=== PATIENT | male | born 1945 | race Caucasian/White ===

== ENCOUNTER 2018-08-27 16:55 | Emergency (ER) | payer MEDICARE ==
--- NOTE | 2018-08-27 19:13 | EDM.PDOC ---
<Janice Jaime - Last Filed: 08/27/18 19:17> ED HPI GENERAL MEDICAL PROBLEM - General Chief Complaint: Cardiovascular Problem Stated Complaint: DIZZINESS Time Seen by Provider: 08/27/18 17:05 Source of Information: Reports: Patient History Limitations: Reports: No Limitations - History of Present Illness INITIAL COMMENTS - FREE TEXT/NARRATIVE: pt felt like his heart was racing. He was sob and he was weak. He did not have chest pain. He was told he had MS and he has a positive MELVA Onset: Today, Other (Pt was in the grocery store and felt sob and very weak. ) Duration: Hour(s): Location: Reports: Chest, Other ( He had no chest pain. ) Associated Symptoms: Reports: Shortness of Breath - Related Data Allergies Allergy/AdvReac Type Severity Reaction Status Date / Time No Known Allergies Allergy Verified 08/27/18 17:07 Home Meds: Home Meds Amitriptyline [Elavil] 50 mg PO BID 08/27/18 [History] Hydrochlorothiazide [Microzide] 12.5 mg PO DAILY #14 capsule 08/27/18 [Rx] Lisinopril [Prinivil] 20 mg PO DAILY 08/27/18 [History] Omeprazole 40 mg PO DAILY 08/27/18 [History] Zolpidem [Ambien] 5 mg PO BEDTIME 08/27/18 [History] prednisoLONE [Millipred] 5 mg PO DAILY 08/27/18 [History] Past Medical History Cardiovascular History: Reports: Hypertension - Past Surgical History GI Surgical History: Reports: Cholecystectomy, Hernia Repair/Other Musculoskeletal Surgical History: Reports: Shoulder Surgery Social & Family History - Tobacco Use Smoking Status *Q: Current Every Day Smoker Years of Tobacco use: 50 Packs/Tins Daily: 0.5 - Caffeine Use Caffeine Use: Reports: Soda - Recreational Drug Use Recreational Drug Use: No ED ROS GENERAL - Review of Systems Review Of Systems: See Below Constitutional: Reports: Fatigue HEENT: Reports: No Symptoms Respiratory: Reports: Shortness of Breath Cardiovascular: Reports: Other (pt felt like his heart was racing. He was sob. ) Endocrine: Reports: No Symptoms GI/Abdominal: Reports: No Symptoms : Reports: No Symptoms Musculoskeletal: Reports: No Symptoms Skin: Reports: No Symptoms Neurological: Reports: Dizziness ED EXAM, GENERAL - Physical Exam Exam: See Below Free Text/Narrative:: pt arrived with a history of being sob and feeling slightly dizzy. He did not have chest pain. He felt like his pulse was rapid but when he got to the clinid it was not fasr/ Exam Limited By: No Limitations General Appearance: Alert, No Apparent Distress, Anxious Ears: Normal TMs Nose: Normal Inspection Throat/Mouth: Normal Inspection Head: Atraumatic Neck: Normal Inspection Respiratory/Chest: No Respiratory Distress Cardiovascular: Regular Rate, Rhythm GI/Abdominal: Soft, Non-Tender (Male) Exam: Deferred Rectal (Males) Exam: Deferred Back Exam: Normal Inspection Extremities: Other ( slight peripheral edema. He has stasis changes and varicosities. ) Neurological: Alert, Oriented, Normal Cognition Psychiatric: Normal Affect Course - Vital Signs Last Recorded V/S: Last Vital Signs Temp 37.2 C 08/27/18 19:29 Pulse 68 08/27/18 19:29 Resp 10 L 08/27/18 19:29 BP 144/87 H 08/27/18 19:29 Pulse Ox 97 08/27/18 17:09 - Orders/Labs/Meds Orders: Active Orders 24 hr Category Date Time Status EKG Documentation Completion [RC] ASDIRECTED Care 08/27/18 17:51 Active EKG 12 Lead [EK] Routine Ther 08/27/18 17:51 Ordered Labs: Laboratory Tests 08/27/18 08/27/18 08/27/18 Range/Units 17:51 18:56 19:13 Troponin I 0.065 H* (0.000-0.056) ng/mL NT-Pro-B Natriuret Pep 67 (5-125) pg/mL Urine Color Yellow Urine Appearance Clear Urine pH 5.0 (4.5-8.0) Ur Specific [place] 1.025 (1.008-1.030) Urine Protein Negative (NEGATIVE) mg/dL Urine Glucose (UA) Normal (NEGATIVE) mg/dL Urine Ketones Negative (NEGATIVE) mg/dL Urine Occult Blood Negative (NEGATIVE) Urine Nitrite Negative (NEGAITVE) Urine Bilirubin Negative (NEGATIVE) Urine Urobilinogen Normal (NORMAL) mg/dL Ur Leukocyte Esterase Negative (NEGATIVE) Urine RBC 0-5 (0-5) Urine WBC Not seen (0-5) Ur Epithelial Cells Not seen Amorphous Sediment Not seen Urine Bacteria Few Urine Mucus Few 08/27/18 Range/Units 19:58 Troponin I 0.067 H* (0.000-0.056) ng/mL NT-Pro-B Natriuret Pep (5-125) pg/mL Urine Color Urine Appearance Urine pH (4.5-8.0) Ur Specific [place] (1.008-1.030) Urine Protein (NEGATIVE) mg/dL Urine Glucose (UA) (NEGATIVE) mg/dL Urine Ketones (NEGATIVE) mg/dL Urine Occult Blood (NEGATIVE) Urine Nitrite (NEGAITVE) Urine Bilirubin (NEGATIVE) Urine Urobilinogen (NORMAL) mg/dL Ur Leukocyte Esterase (NEGATIVE) Urine RBC (0-5) Urine WBC (0-5) Ur Epithelial Cells Amorphous Sediment Urine Bacteria Urine Mucus Meds: Medications Discontinued Medications Generic Name Dose Route Start Last Admin Trade Name Freq PRN Reason Stop Dose Admin Hydrochlorothiazide 25 mg 08/27/18 20:34 08/27/18 20:52 Hydrochlorothiazide PO 08/27/18 20:35 25 mg ONETIME ONE Administration - Re-Assessments/Exams Free Text/Narrative Re-Assessment/Exam: 08/27/18 19:17 second trop was slightly lower. His ekg showed a anterior faciular block but no acute changes that could be seen. His chest xray shows alot of chronic changes. Departure - Departure Disposition: Home, Self-Care 01 Clinical Impression: HTN, goal below 130/80, Elevated troponin Prescriptions: Hydrochlorothiazide [Microzide] 12.5 mg PO DAILY #14 capsule Instructions: Hypertension, [id number] Referrals: PCP,None [Primary Care Provider] - Forms: ED Department Discharge Additional Instructions: Avoid salt or salty foods. Resume your HCTZ starting tomorrow. Continue your other medications as currently. Return for chest pains or passing out. See your doctor for recheck before 14 days from now. Smoke as little as possible. <Timothy Carvalho - Last Filed: 08/27/18 21:04> Course - Vital Signs Text/Narrative:: Feeling well, no longer dizzy. Denies any chest pain hx. Is a smoker. Has a primary in [place], [place]. Tells me a doctor stopped his HCTZ about 3 weeks ago telling him it wouldn't help his varicose veins. Apparently his BP has been rising since then as today is his first BP recheck since it was d/c'd. Walked laps around the ER to see if he developed any dizziness, SOB, or CP-none resulted and he was sent home with Trops that were not rising. - Orders/Labs/Meds Meds: Medications Discontinued Medications Generic Name Dose Route Start Last Admin Trade Name Freq PRN Reason Stop Dose Admin Hydrochlorothiazide 25 mg 08/27/18 20:34 08/27/18 20:52 Hydrochlorothiazide PO 08/27/18 20:35 25 mg ONETIME ONE Administration - Radiology Interpretation Free Text/Narrative:: CXR-moderate hiatal hernia, atelectasis at both bases. Departure - Departure Time of Disposition: 21:10 Condition: Fair
--- NOTE | 2018-08-27 19:38 | CRLCR ---
HISTORY: Fever COMPARISON: None available FINDINGS: A portable erect AP view of the chest was obtained at 1910 hours. There is mild linear density in both lower lungs, probably atelectasis. There is shallow inspiration. The rest of the chest is clear. The heart is normal in size. There is a moderate hiatal hernia. The mediastinum is otherwise normal in appearance. The osseous structures are normal in appearance for the patient`s age. IMPRESSION: Mild linear atelectasis in both lung bases. Moderate hiatal hernia. Dictated by Arnel Flower MD @ Aug 27 2018 7:34PM Signed by Dr. Arnel Flower @ Aug 27 2018 7:36PM
[2018-08-27] MEDS ORDERED: Hydrochlorothiazide 25 MG Tab PO ONE (20:34)
== END 2018-08-27 21:24 | disposition home or self-care (01) ==
LOC: JP.ED 16:55
DX: I10 Essential (primary) hypertension (principal); H10.022 Other mucopurulent conjunctivitis, left eye; R79.89 Other specified abnormal findings of blood chemistry; F17.210 Nicotine dependence, cigarettes, uncomplicated; Z79.899 Other long term (current) drug therapy
CPT/HCPCS: 36415; 71045; 81001; 83880; 84484; 93005; 99285; A9270